=== PATIENT | female | born 1945 | race African-American/Black ===

== ENCOUNTER 2020-11-26 06:05 | Day surgery (SDC) | payer OTHER, SELFPAY ==
[~2020-11-26] VITALS: Ht 157.5 cm; Wt 114.3 kg
[2020-11-26] MEDS ORDERED: diphenhydrAMINE 50 MG/ML VIAL ONE (07:41)
[2020-11-26] MEDS ORDERED: fentaNYL citrate 0.05 MG/ML VIAL ONE (07:41)
[2020-11-26] MEDS ORDERED: MIDAZOLAM 5 MG/5 ML VIAL ONE (07:41)
[2020-11-26] MEDS ORDERED: LIDOCAINE 2% 100 MG/5 ML UJET TP ONE (07:42)
[2020-11-26] MEDS: fentaNYL citrate 0.05 MG/ML VIAL IVP ONE (07:49)
[2020-11-26] MEDS: MIDAZOLAM 2 MG/2 ML VIAL IVP ONE (07:50)
[2020-11-26] MEDS: LIDOCAINE 2% 100 MG/5 ML UJET TP ONE (07:52)
== END 2020-11-26 09:08 | disposition home or self-care (01) ==
LOC: MDS 06:05 → MMU 06:06 → MDS 09:08
PROVIDERS: ATTEND Internal Medicine Gastroenterology
DX: R19.5 Other fecal abnormalities (principal); I10 Essential (primary) hypertension; E78.00 Pure hypercholesterolemia, unspecified; J44.9 Chronic obstructive pulmonary disease, unspecified; E11.9 Type 2 diabetes mellitus without complications; G20 Parkinson's disease; Z90.710 Acquired absence of both cervix and uterus; Z79.899 Other long term (current) drug therapy; Z20.822 Contact with and (suspected) exposure to COVID-19
CPT/HCPCS: 45378; 82948; 87426; J2250; J3010; J1200

== ENCOUNTER 2021-02-18 08:10 | Day surgery (SDC) | payer OTHER, SELFPAY ==
[~2021-02-18] VITALS: Ht 157.5 cm; Wt 106.6 kg
[2021-02-18 11:16] LABS: BASOPHILS # (AUTO) 0.1 K/uL (0.00-0.22); BASOPHILS % (AUTO) 0.9 % (0.0-2.0); EOSINOPHILS # (AUTO) 0.1 K/uL (0-0.4); EOSINOPHILS % (AUTO) 1.1 % (0.0-4.0); HEMOGLOBIN 10.5 g/dL (12.0-16.0); LYMPHOCYTES # (AUTO) 1.4 K/uL (2.5-16.5); LYMPHOCYTES % (AUTO) 15.2 % (20.5-51.1); MEAN CORPUSCULAR HEMOGLOBIN 26 pg (27-31); MEAN CORPUSCULAR HGB CONC 31 g/dL (33-37); MONOCYTES # (AUTO) 0.7 K/uL (0.8-1.0); MONOCYTES % (AUTO) 7.4 % (1.7-9.3); NEUTROPHILS # (AUTO) 7.1 K/uL (1.8-7.7); NEUTROPHILS % (AUTO) 75.4 % (42.2-75.2); PLATELET COUNT (AUTO) 332 K/uL (140-450); RED BLOOD CELL COUNT(AUTO) 4.05 MIL/uL (4.20-5.40); RED CELL DISTRIBUTION WIDTH 16.8 % (11.6-13.7); WHITE BLOOD COUNT (AUTO) 9.4 K/uL (4.8-10.8)
[2021-02-18 11:20] LABS: ANION GAP 6.3 (8-16); CARBON DIOXIDE 34.9 mmol/L (21-32); CHLORIDE 96 mmol/L (98-107); CREATININE 0.7 mg/dL (0.6-1.3); GLUCOSE 119 mg/dL (74-106); POTASSIUM 3.2 mmol/L (3.5-5.1); SODIUM SERUM 134 mmol/L (136-145); UREA NITROGEN, BLOOD 7 mg/dL (7-18)
[2021-02-18] MEDS ORDERED: PROPOFOL 200 MG/20 ML VIAL IV ONE ×3 (11:45→12:52)
[2021-02-18] MEDS ORDERED: fentaNYL citrate 0.05 MG/ML VIAL ONE (12:11)
[2021-02-18] MEDS ORDERED: NACL 0.9% 1,000 ML IV SCH (13:05)
[2021-02-18] MEDS ORDERED: BLOOD GLUCOSE MONITORING 1 DEV DEV FS SCH (13:05)
[2021-02-18] MEDS ORDERED: diphenhydrAMINE 50 MG/ML VIAL IVP PRN (13:05)
[2021-02-18] MEDS ORDERED: ONDANSETRON 4 MG/2 ML VIAL IVP PRN (13:05)
== END 2021-02-18 14:05 | disposition home or self-care (01) ==
LOC: MDS 08:10 → MMU 08:11 → MDS 14:05
PROVIDERS: ATTEND Internal Medicine Gastroenterology
DX: R19.5 Other fecal abnormalities (principal); D12.8 Benign neoplasm of rectum; I10 Essential (primary) hypertension; E78.00 Pure hypercholesterolemia, unspecified; E11.9 Type 2 diabetes mellitus without complications; J44.9 Chronic obstructive pulmonary disease, unspecified; G20 Parkinson's disease; Z79.899 Other long term (current) drug therapy; Z20.822 Contact with and (suspected) exposure to COVID-19
CPT/HCPCS: 36415; 45385; 71045; 80048; 82948; 85025; 87426; 88305; J2704; J3010; J7030; Q0092